=== PATIENT | female | born 1940 | race Caucasian/White ===

== ENCOUNTER 2018-05-17 01:14 | Inpatient (IN) | payer OTHER, MEDICARE ==
[~2018-05-17] VITALS: Ht 170.2 cm; Wt 115.4 kg
[~2018-05-17 01:14] MED LIST: LOPRESSOR100 M1 PO; ST. JOSEPH ASPI81 M1 PO; VALSARTAN-HCTZ1 EAC2 PO
[2018-05-17] MEDS ORDERED: SERTRALINE HCL100 MG PO (08:32)
[2018-05-17] MEDS ORDERED: LEVOTHYROXINE50 MCG PO (08:32)
[2018-05-17] MEDS ORDERED: VITAMIN E600 UNIT PO (08:35)
[2018-05-17] MEDS ORDERED: VITAMIN D1000 UNIT PO (08:36)
--- NOTE | 2018-05-17 09:09 | Surg Short-stay <48hrs Dis Sum ---
Visit Information Visit Dates Admission Date: 05/17/18 Discharge Date: 05/19/18 Surgical Short Stay DC Summary Admission Diagnosis: Right hip OA Final Diagnosis: RITIKA s/p R MORENITA Procedure(s): Right total hip arthroplasty Summary/Significant Findings: Patient was admitted to the hospital for an elective right total hip replacement. The procedure was tolerated well and patient was transferred to a general surgical floor. Diet was advanced and tolerated. The patient was evaluated and treated by physical therapy. At the time of hospital discharge, vital signs were stable, neurovascular status was intact and pain was controlled with the use of oral pain medications. Condition at Discharge: Stable Discharge Disposition: home health services Discharge instructions provided to patient/family: Yes Post discharge follow-up plan: [address] Grande Copies to: Elsie Herrera
--- NOTE | 2018-05-17 09:09 | Admission Core Measures ---
Acute Coronary Syndrome (CM) ACS Core Measures Acute Coronary Syndrome Diagnosis No Congestive Heart Failure (NEW) CHF Core Measures Congestive Heart Failure Diagnosis No Cerebrovascular Accident CVA Core Measures CVA/TIA Diagnosis No Venous Thromboembolism VTE Core Tony (View Protocol) VTE Risk Factors Surgery No Mechanical VTE Prophylaxis d/t N/A MechProphylax Ordered No VTE Pharm Prophylaxis d/t NA PharmProphylax ordered Problem List As ranked by this Provider includes Assessment & Plan 1. Unilateral primary osteoarthritis, right hip HOME MEDS Home Med List Aspirin ([place] Aspirin) 81 MG TABLET.DR 1 TAB PO DAILY HEARTHEALTH ( Reported) Cholecalciferol (Vitamin D3) (Vitamin D) 1,000 UNIT TABLET 1 TAB PO BID HEALTH SUPPLEMENT (Reported) Levothyroxine Sodium 50 MCG TABLET 1 TAB PO DAILY HYPOTHYROIDISM (Reported) Metoprolol Tartrate (Lopressor) 100 MG TABLET 1 TAB PO BID BP (Reported) Sertraline HCl 100 MG TABLET 1 TAB PO BID MENTAL HEALTH (Reported) Valsartan/Hydrochlorothiazide (Valsartan-Hctz 160-25 MG Tab) 160 MG-25 MG TABLET 1 TAB PO DAILY BP (Reported) Vitamin E Acetate (Vitamin E) 600 UNIT CAPSULE 1 CAP PO DAILY HEALTH SUPPLEMENT (Reported)
--- NOTE | 2018-05-17 09:12 | Patient Discharge Instructions ---
Discharge Instructions General Discharge Information You were seen/treated for: Right hip osteoarthritis You had these procedures: Right total hip arthroplasty Watch for these problems: Increasing pain despite the use of pain medication Increasing redness, warmth or swelling Drainage of any type from incision Inability to bear weight on operative leg Persistent nausea and vomiting Fever greater than 101.5 degrees Do not soak the wound: Yes No bath, but you may shower: Yes Other wound care: Please keep wound clean and dry. No ointments or lotions of any type on or near incision at any time. No exceptions. Your dressing will be changed by your nurse on the second day after your surgery. Daily dry dressing changes are recommended each day thereafter. Do not soak your wound in a bath or pool at any time until otherwise indicated by your surgeon. You may shower, please dry wound immediately after shower with a clean towel. Special Instructions: Aspirin: You are taking this medication to help prevent blood clot formation. Please take with food to protect your stomach lining. Please take as directed. Constipation: Pain medication can cause constipation. Your surgeon has recommended that you take Colace and miralax each day. You may discontinue this medication if you develop loose stool or diarrhea. Diet Continue normal diet: Yes Activity Full Activity/No Limits: No Activity Self Limited: Yes Activity Limited to: Weight bear as tolerated (with rolling walker as needed) Acute Coronary Syndrome Inclusion Criteria At DC or during hospital stay patient has or had the following: ACS DIAGNOSIS No Discharge Core Measures Meds if any: Prescribed or Continued at Discharge Meds if any: NOT Prescribed or Continued at Discharge Congestive Heart Failure Inclusion Criteria At DC or during hospital stay patient has or had the following: CHF DIAGNOSIS No Discharge Core Measures Meds if any: Prescribed or Continued at Discharge Meds if any: NOT Prescribed or Continued at Discharge Cerebrovascular accident Inclusion Criteria At DC or during hospital stay patient has or had the following: CVA/TIA Diagnosis No Discharge Core Measures Meds if any: Prescribed or Continued at Discharge Meds if any: NOT Prescribed or Continued at Discharge Venous thromboembolism Inclusion Criteria VTE Diagnosis No VTE Type NONE VTE Confirmed by (Test) NONE Discharge Core Measures - Per Current guidelines, there needs to be overlap - treatment for the first 5 days of Warfarin therapy. - If discharged on Warfarin prior to 5 days of - overlap therapy, the patient will need to be - assessed for post discharge needs including - *Post discharge parental anticoagulation - *Warfarin and/or parental anticoagulation education - *Follow up date to check INR post discharge At least 5 days overlap therapy as Inpatient No Meds if any: Prescribed or Continued at Discharge Note: Overlap Therapy is Warfarin and Anticoagulant Meds if any: NOT Prescribed or Continued at Discharge
[2018-05-17] MEDS ORDERED: COLACE100 M1 PO (09:32)
[2018-05-17] MEDS ORDERED: DILAUDID2 M1 PO (09:32)
[2018-05-17] MEDS ORDERED: ASPIRIN EC81 M1 PO (09:32)
[2018-05-17] MEDS ORDERED: OMEPRAZOLE20 M3 PO (09:32)
[2018-05-17] MEDS ORDERED: MIRALAX17 G1 PO (09:32)
--- NOTE | 2018-05-17 13:02 | RADIOLOGY REPORT ---
EXAMINATION: XR HIP, RIGHT CLINICAL INFORMATION: Right total hip replacement. COMPARISON: None. TECHNIQUE: AP and cross table lateral views of the right hip were obtained. FINDINGS: There are sequelae of a right total hip arthroplasty. Alignment of the hardware appears anatomic and no fractures are demonstrated. There is a drainage tube in the soft tissues lateral to the hip joint, consistent with postoperative changes. IMPRESSION: 1. Right hip x-ray demonstrating sequelae of recent total hip replacement.
[2018-05-17 14:00] VITALS: BP 120/70
--- NOTE | 2018-05-17 14:39 | Operative Report ---
Operative/Inv Procedure Report Surgery Date: 05/17/18 Name of Procedure: Right total hip replacement Pre-Operative Diagnosis: Primary right hip DJD Post-Operative Diagnosis: Same Estimated Blood Loss: 350 Surgeon/Clerical Office: Christiane LINDSAY,Aiden Jin Anesthesia: block Operative/Procedure Note Note: Description of Procedure: The patient was taken to the operating room and positively identified. After induction of spinal anesthesia and administration of appropriate pre-operative antibiotics, the patient was positioned supine on the operating room table and all bony prominences were well padded. After performing a surgical timeout, the right lower extremity was prepped and draped in the usual sterile fashion. A direct anterior approach was made to the right hip. The incision was carried sharply through superficial soft tissues to the level of the fascia. Meticulous hemostasis was maintained with Bovie electocautery. The fascia over the tensor fascia conor muscle was opened sharply and the interval between the TFL and the sartorius was entered bluntly taking care to stay lateral to the lateral femoral cutaneous nerve. Retractors were placed around the femoral neck and the pericapsular fat was identified. The ascending branches of the lateral femoral circumflex vessels were identified and carefully coagulated. The pericapsular fat and anterior capsule were then resected. A napkin ring osteotomy was performed and the femoral head was removed without difficulty. Attention was then turned to the acetabulum. After appropriate placement of retractors, the acetabulum was exposed. Soft tissue was cleaned from the acetabular margin and notch. Overhanging osteophytes were removed and the teardrop was exposed. The acetabulum was then sequentially reamed to accept a 56 mm Mark Tritanium hemispherical solid shell. This was impacted into place in the appropriate position and fitted with a 36 mm Trident X3 zero degree polyethylene insert. Attention was then turned to the femur. After performing the appropriate ligament releases, the proximal femur was exposed. It was then sequentially broached to accept a size #3 [place] Accolade 2 stem. This was trialed for leg length and stability. The trial component was removed and the final component was impacted into place. The trunnion was carefully cleaned and fit with a 36 mm, +5 Biolox delta ceramic femoral head. The hip was reduced and put through a full range of motion and found to be stable. The articular space was then irrigated with sterile saline. The periarticular soft tissues were infilitrated with Marcaine. The fascial layer was closed with interrupted #1 vicryl suture and the skin was re-approximated with interrupted 2 -0 vicryl. The skin was closed with a running 3-0 V-Lock suture. Steri-strips and a sterile dressing were applied. The patient was awakened and taken to the recovery room in satisfactory condition.
--- NOTE | 2018-05-17 15:17 | PN- Orthopedic ---
Subjective Subjective: Post op check: No acute post operative events reported. Pain controlled. No chest pain, shortness of breath. No nausea or vomitting. Tolerating po. Voidigng. Has been oob with PT. Objective Vital Signs and I&Os see nursing documentation Physical Exam: General: Alert and oriented x3, no acute distress Cardiac: RRR, s1s2 Pulm: CTA bilaterally, nonlabored respiratory effort Abd: soft, non-tender, non -distended Extremities: Moves all extremities, distal sensation intact. Skin warm and well perfused. Bilateral calves soft and non-tender Surgical site: Right hip. Hemovac in place, holding suction. Dressing dry and intact. Thigh compartment soft. Assessment/Plan Assessment/Plan This is a 77 year old female. pmh signficant for htn, hypothyroid, and depression. She is pod 0 s/p R THR -Continue home meds -IV fluids: d5 1/2 NS at 75/hr, dc when tolerating adequate po -Activity: OOB, WBAT -Diet: Advance as toelrated -DVT ppx: ASA 81 mg bid. alps, teds -abx ppx: Cefazolin 2g q8 x2 additional doses -bowel regimen: Colace and miralax -follow up am labs, cbc and bep -anticipate dc to home tomorrow will discuss plan of care with Dr. Grande Core Measures Venous Thromboembolism VTE Risk Factors Surgery No Mechanical VTE Prophylaxis d/t N/A MechProphylax Ordered No VTE Pharm Prophylaxis d/t NA PharmProphylax ordered
[2018-05-17 15:50] VITALS: BP 128/75
[2018-05-17 18:38] VITALS: BP 110/60
[2018-05-17 20:00] VITALS: BP 144/80
[2018-05-18] VITALS: BP 120/70
[2018-05-18 04:00] VITALS: BP 134/70
--- NOTE | 2018-05-18 07:25 | PN- Orthopedic ---
Subjective Subjective: Awake, alert Complaining of pain - tolerable with meds Tolerating diet Ambulated with PT yesterday Objective Vital Signs and I&Os Vital Signs Date Time Temp Pulse Resp B/P B/P Pulse O2 O2 Flow FiO2 Mean Ox Delivery Rate 05/18 0400 99.1 76 20 134/70 95 Room Air 05/18 0000 99.0 69 20 120/70 93 Room Air 05/17 2044 68 144/80 05/17 2000 98.1 68 18 144/80 94 Room Air 05/17 1838 97.7 59 20 110/60 96 Room Air 05/17 1610 96 Room Air 05/17 1550 97.7 58 20 128/75 93 Room Air 05/17 1400 98.1 48 17 120/70 Intake & Output 05/18 0000 05/17 1600 05/17 0000 05/16 1600 Intake Total 600 240 Output Total 250 220 Balance 350 20 Intake, IV 400 Intake, Oral 200 240 Output, 20 Drainage Output, Urine 250 200 Patient 254 lb Weight Weight Bed scale Measurement Method Physical Exam: Tmax 99.1, all other vss voiding without difficulty hemovac - 20cc total since surgery General: alert and oriented times three Chest: clear anteriorly bilaterally Abd: soft, good bs Ext: warm, no edema, normosensate, good 5/5 SARm, no calf tenderness Wd: dressed, dry, ice pack in place Current Medications: Current Medications Sig/Dimas Start time Last Medication Dose Route Stop Time Status Admin Acetaminophen 1,000 MG Q6H 05/17 1600 AC 05/18 IV 05/18 1001 0433 Acetaminophen 0 .STK-MED ONE 05/17 0910 DC PO Acetaminophen 975 MG ONCE 05/17 0000 DC PO 05/17 2359 Aspirin Buffered 81 MG DAILY 05/18 09 AC PO Dextrose/Sodium 1,000 ML .[id number] 05/17 1415 AC 05/18 Chloride IV 0617 Docusate Sodium 100 MG BID 05/17 2100 AC 05/17 PO 2044 Hydrochlorothiazide 25 MG DAILY 05/18 09 AC PO Hydromorphone HCl 2 MG Q4P PRN 05/17 1415 AC 05/17 PO 1817 Hydromorphone HCl 4 MG Q4P PRN 05/17 1415 AC 05/17 PO 2200 Levothyroxine Sodium 0.05 MG DAILY AC 05/18 0700 AC 05/18 PO 0617 Losartan Potassium 50 MG DAILY 05/18 0900 AC PO Metoprolol Tartrate 100 MG BID 05/17 2100 AC 05/17 PO 2044 Morphine Sulfate 2 MG Q3P PRN 05/17 0930 AC IV Omeprazole 20 MG DAILY AC 05/18 0700 AC 05/18 PO 0617 Ondansetron HCl 4 MG Q6P PRN 05/17 1415 AC IV Oxycodone HCl 0 .STK-MED ONE 05/17 0910 DC PO Oxycodone HCl 10 MG ONCE 05/17 0000 DC PO 05/17 235 Polyethylene Glycol 17 GM DAILY 05/18 09 AC PO Sertraline HCl 200 MG QPM 05/17 2100 AC 05/17 PO 2042 Vancomycin HCl 1,500 MG ONCE ONE 05/17 2100 DC 05/17 Sodium Chloride 250 ML IV 05/17 Vancomycin HCl 1,500 MG ONCE 05/17 0000 DC Sodium Chloride 250 ML IV 05/17 235 Assessment/Plan Assessment/Plan 78yo female pod 1 s/p R THR dc hemovac - done without difficulty PT - WBAT await PT clearance for dc/recommendations pain management asa 81mg po bid for dvt ppx vanco - surgical ppx 24 hrs Pt seen by Dr Grande this morning Core Measures Venous Thromboembolism VTE Risk Factors Surgery No Mechanical VTE Prophylaxis d/t N/A MechProphylax Ordered No VTE Pharm Prophylaxis d/t NA PharmProphylax ordered
[2018-05-18 08:00] VITALS: BP 137/42
[2018-05-18 09:14] LABS: ABSOLUTE BASOPHIL COUNT 0 /CUMM (0.0-0.2); ABSOLUTE EOSINOPHIL COUNT 0.1 /CUMM (0.0-0.7); ABSOLUTE GRANULOCYTE CT 5.5 /CUMM (1.4-6.5); ABSOLUTE LYMPH COUNT 0.8 /CUMM (1.2-3.4); ABSOLUTE MONOCYTE COUNT 0.7 /CUMM (0.10-0.60); BASOPHIL % 0.4 % (0.0-2.0); EOSINOPHIL % 0.9 % (0-5); GRANULOCYTE % 77.7 % (42.2-75.2); HEMATOCRIT 34.8 % (37-47); MEAN CORPUSCULAR HGB 31.6 PG (27.0-31.0); MEAN CORPUSCULAR HGB CONC 34.7 G/DL (33.0-37.0); MEAN CORPUSCULAR VOLUME 90.9 FL (81.0-99.0); MEAN PLATELET VOLUME 8.3 FL (7.4-10.4); PLATELET COUNT 197 /CUMM (130-400); RED BLOOD CELL CT 3.83 /CUMM (4.20-5.40); WHITE BLOOD CELL COUNT 7.1 /CUMM (4.8-10.8)
[2018-05-18 12:30] VITALS: BP 132/66
[2018-05-18 15:54] VITALS: BP 120/70
[2018-05-18 22:33] VITALS: BP 124/74
[2018-05-19 07:07] VITALS: BP 130/70
--- NOTE | 2018-05-19 07:41 | PN- Orthopedic ---
Subjective Subjective: Reports pain improved from yesterday. Episode of nausea and vomiting last night, only time time, which she states may have followed after taking dilaudid. Out of bed to chair without difficulty. No dizziness. No shortness of breath. No chest pains. Voiding well. Tolerating diet. Passing flatus. No bm yet. Objective Vital Signs and I&Os Vital Signs Date Time Temp Pulse Resp B/P B/P Pulse O2 O2 Flow FiO2 Mean Ox Delivery Rate 05/19 0707 98.7 75 18 130/70 93 05/18 2233 97.8 74 18 124/74 100 Room Air 05/18 2100 75 124/60 05/18 1554 98.7 68 20 120/70 93 05/18 1235 Room Air 05/18 1230 98.3 64 20 132/66 95 05/18 0838 76 134/70 05/18 0838 76 134/70 05/18 0800 Room Air 05/18 0800 98.6 69 18 137/42 95 Intake & Output 05/19 0805/19 0000 05/18 1600 05/18 0800 05/18 0000 05/17 1600 Intake Total 220 100 760 800 600 240 Output Total 200 20 250 220 Balance 220 100 560 780 350 20 Intake, IV 700 400 Intake, Oral 220 100 760 100 200 240 Number 0 Bowel Movements Output, 20 20 Drainage Output, Urine 200 250 200 Patient 254 lb Weight Weight Bed scale Measurement Method Physical Exam: General - alert & oriented. out of bed to chair. no acute distress. Lungs - clear bilaterally. no w/r/r. Cardiac - s1s2. reg. Abdomen - soft. Extremities - warm bilaterally. dressing changed, right hip. incision approximated with steri strips. no surrounding erythema / exudates. no hematoma. calves soft and nontender b/l. TEDS in place b/l. athrombic pumps in place. nvi. Current Medications: Current Medications Sig/Dimas Start time Last Medication Dose Route Stop Time Status Admin Acetaminophen 1,000 MG Q6H 05/17 1600 DC 05/18 IV 05/18 1001 0922 Aspirin Buffered 81 MG DAILY 05/18 0900 AC 05/18 PO 0838 Dextrose/Sodium 1,000 ML .[id number] 05/17 1415 DC 05/18 Chloride [place] 0617 Docusate Sodium 100 MG BID 05/17 2100 AC 05/18 PO 2100 Hydrochlorothiazide 25 MG DAILY 05/18 0900 AC 05/18 PO 0838 Hydromorphone HCl 2 MG Q4P PRN 05/17 1415 AC 05/17 PO 1817 Hydromorphone HCl 4 MG Q4P PRN 05/17 1415 AC 05/18 PO 1308 Ketorolac 15 MG Q8P PRN 05/18 1530 AC 05/18 Tromethamine IV 1904 Levothyroxine Sodium 0.05 MG DAILY AC 05/18 0700 AC 05/19 PO 0542 Losartan Potassium 50 MG DAILY 05/18 0900 AC 05/18 PO 0838 Metoprolol Tartrate 100 MG BID 05/17 2100 AC 05/18 PO 2100 Morphine Sulfate 2 MG Q3P PRN 05/17 09 DC IV Omeprazole 20 MG DAILY AC 05/18 07 AC 05/19 PO 0542 Ondansetron HCl 0 .STK-MED ONE 05/18 1924 DC .ROUTE Ondansetron HCl 4 MG Q6P PRN 05/17 141 AC 05/18 IV 1927 Polyethylene Glycol 17 GM DAILY 05/18 0900 AC PO Sertraline HCl 200 MG QPM 05/17 2100 AC 05/18 PO 2100 Sodium Chloride 1,000 MG TID 05/18 1422 AC 05/18 PO 05/19 0901 2059 Results Last 48 Hours of Labs: Laboratory Tests 05/18 0848 Chemistry Sodium (137 - 145 mmol/L) 131 L Potassium (3.5 - 5.1 mmol/L) 4.2 Chloride (98 - 107 mmol/L) 101 Carbon Dioxide (22 - 30 mmol/L) 22 Anion Gap (5 - 16) 8 BUN (7 - 17 mg/dL) 16 Creatinine (0.5 - 1.0 mg/dL) 0.6 Estimated GFR (>60 ml/min) > 60 BUN/Creatinine Ratio (7 - 25 %) 26.7 H Hematology CBC w Diff NO MAN DIFF REQ WBC (4.8 - 10.8 /CUMM) 7.1 RBC (4.20 - 5.40 /CUMM) 3.83 L Hgb (12.0 - 16.0 G/DL) 12.1 Hct (37 - 47 %) 34.8 L MCV (81.0 - 99.0 FL) 90.9 MCH (27.0 - 31.0 PG) 31.6 H MCHC (33.0 - 37.0 G/DL) 34.7 RDW (11.5 - 14.5 %) 13.0 Plt Count (130 - 400 /CUMM) 197 MPV (7.4 - 10.4 FL) 8.3 Gran % (42.2 - 75.2 %) 77.7 H Lymphocytes % (20.5 - 51.1 %) 11.4 L Monocytes % (1.7 - 9.3 %) 9.6 H Eosinophils % (0 - 5 %) 0.9 Basophils % (0.0 - 2.0 %) 0.4 Absolute Granulocytes (1.4 - 6.5 /CUMM) 5.5 Absolute Lymphocytes (1.2 - 3.4 /CUMM) 0.8 L Absolute Monocytes (0.10 - 0.60 /CUMM) 0.7 H Absolute Eosinophils (0.0 - 0.7 /CUMM) 0.1 Absolute Basophils (0.0 - 0.2 /CUMM) 0 Assessment/Plan Assessment/Plan This is a 77 year old female pmh signficant for htn, hypothyroidism, depression, now POD#2 s/p R THR for primary right hip DJD, pain improved from yesterday with one episode of N/V last night tolerating diet pain controlled currently continue PT dressing changed f/u labs bowel regime ordered home meds active, including beta lyndon asa 81 bid - dvt ppx cleared by PT for home with [facility] possible d/c home later today will d/w Core Measures Venous Thromboembolism VTE Risk Factors Surgery No Mechanical VTE Prophylaxis d/t N/A MechProphylax Ordered No VTE Pharm Prophylaxis d/t NA PharmProphylax ordered
[2018-05-19 07:57] VITALS: BP 130/70
== END 2018-05-19 11:35 | disposition home health service (06) | DRG 470 ==
LOC: 2NA 01:14 → SDA 01:14 → ENRESERV 12:51 → ENTRNSPT 13:11 → EDTRNSPTSTS 13:25 → 2NA 13:33 → CMPTRNSPT 13:56 → ENPENDDIS 05-19 08:03 → ENTRNSPT 05-19 11:12 → EDTRNSPTSTS 05-19 11:30 → EDTRNSPT 05-19 11:30 → 2NA 05-19 11:35 → CMPTRNSPT 05-19 12:01
PROVIDERS: Physician Assistant Surgical
PROC: 0SR904A Replacement of Right Hip Joint with Ceramic on Polyethylene Synthetic Substitute, Uncemented, Open Approach (ICD-10-PCS; principal; 2018-05-17)
DX: M16.11 Unilateral primary osteoarthritis, right hip (principal); E66.9 Obesity, unspecified; I10 Essential (primary) hypertension; F32.9 Major depressive disorder, single episode, unspecified; E78.5 Hyperlipidemia, unspecified; Z68.39 Body mass index [BMI] 39.0-39.9, adult; E04.9 Nontoxic goiter, unspecified; E03.9 Hypothyroidism, unspecified; K21.9 Gastro-esophageal reflux disease without esophagitis
CPT/HCPCS: 2NAP; 36415; 36592; 73502-RT; 82436; 97110-GO; 97116-GO; 97161-GP; 97530-GO; J0131; J0690; J0735; J2405; J3370; J7040; J7042